=== PATIENT | male | born 1955 | race Caucasian/White ===

== ENCOUNTER 2023-03-16 07:53 | Outpatient (RCR) | payer MEDICARE, SELFPAY ==
--- NOTE | 2023-03-16 08:10 | OPREHPOC ---
Outpatient Therapy Plan of Care This is a Multidisciplinary Plan of Care that may contain components documented by all disciplines (PT, OT, and ST.) PT Problem 1 PT Problem #1 Knowledge Deficit PT Goal 1 Goal 1. independent and compliant with HEP Target Visit 4 PT Problem 2 PT Problem #2 Pain PT Goal 1 Goal 1. patient to report no more than 3/10 pain in the neck/upper traps 2. patient to report reduction of radicular symptoms in the bilateral hands to the elbows or higher. Target Visit 8 PT Problem 3 PT Problem #3 Impaired Range of Motion PT Goal 1 Goal 1. improve bilateral cervical rotation by 5 degrees or better 2. improve bilateral cervical sidebending t0 20 degrees or better 3. improve cervical flexion by 5 degrees or better 4. improve cervical extension by 5 degrees or better Target Visit 8 PT Problem 4 PT Problem #4 Impaired Strength PT Goal 1 Goal 1. improve bilateral shoulder strength to 4+/5 or better overall 2. improve bilateral elbow strength to 5/5 3. improve deep neck flexor strength to perform chin tuck and hold during cervical flexion from table in supine. 4. improve bilateral director plans strength to 65lbs or greater bilaterally Target Visit 8 PT Problem 5 PT Problem #5 Impaired Functional Mobil PT Goal 1 Goal 1. NDI to display less than 20% functionally declined 2. patient to carry 20lbs in each hand for 400ft without dropping weights or stopping to adjust director plans 3. patient to sleep through the night 4 nights a week or better 4. patient to lay on back and perform UE activities for 20 minutes at a time without rest 5. patient to
--- NOTE | 2023-03-16 08:10 | PTOPEVAL1 ---
Assessment and note entered by JT File, PT Evaluation Information Assessment Status Evaluation Diagnosis s/p cervical fusion Onset 01/26/23 Subjective Information patient reports he underwent cervical fusion on . he reports prior to the surgery, he was getting numbness and tingling in both hands. he reports he eventually had and MRI and CT of the cervical spine that found stenosis. he reports since surgery, both hands are still numb and tingling. he reports the L is worse than the R. he reports he is in remission from bladder cancer. he reports he his most recent scan found no new tumors. he reports he is unable to put socks on, tie shoes, walk with anything in his hands. he reports he frequently drops objects. he reports he also has difficulty buttoning his pants and sleeping. he believes he entier neck was fused from C1-C6 or C7. Reported Pain Level Pain Score 7: Self Report Assessment PT Clinical Summary mr. hernandez is a 67 yo man who presents to skilled PT services for evaluation and treatment of neck pain and functional limitations following a multi- level cervical fusion. he presents today with deficits in cervical rom, cervical strength, UE strength, and posture. he is also limited by pain in the neck and tenderness in the tissue surrounding the cervical spine. he would benefit from continued skilled PT to improve his objective /functional deficits, decrease pain, and return to prior level functional activities. Plan of Care Interventions Electrical Stimulation,Hot Pack/Cold Pack,Manual Therapy,Neuro Re-education,Patient/Caregiver Educati,Therapeutic Activities,Therapeutic Exercise PT Services Indicated Yes Treatment Frequency and 2x weekly for 8 visits Duration These treatments will address the objective and functional deficits as defined above. The patient will be advanced safely and appropriately in order for the patient to progress towards his/her prior level of function. Additional exercises will be introduced and as well as a comprehensive home exercise program upon discharge, if needed, ?to ensure carryover of functional gains achieved in the clinic. This treatment plan has been reviewed and agreement upon by the patient.
--- NOTE | 2023-03-19 07:56 | PCPTNOTE ---
pt cancelled no reason given
--- NOTE | 2023-04-15 08:00 | OPREHPOC ---
Outpatient Therapy Plan of Care This is a Multidisciplinary Plan of Care that may contain components documented by all disciplines (PT, OT, and ST.) PT Problem 1 PT Problem #1 Knowledge Deficit PT Goal 1 Goal 1. independent and compliant with HEP Target Visit 4 Progress Met PT Problem 2 PT Problem #2 Pain PT Goal 1 Goal 1. patient to report no more than 3/10 pain in the neck/upper traps 2. patient to report reduction of radicular symptoms in the bilateral hands to the elbows or higher. Target Visit 8 Progress Met PT Problem 3 PT Problem #3 Impaired Range of Motion PT Goal 1 Goal 1. improve bilateral cervical rotation by 5 degrees or better. met 2. improve bilateral cervical side bending to 20 degrees or better. not met 3. improve cervical flexion by 5 degrees or better . met 4. improve cervical extension by 5 degrees or better. met Target Visit 8 Progress Partially Met PT Problem 4 PT Problem #4 Impaired Strength PT Goal 1 Goal 1. improve bilateral shoulder strength to 4+/5 or better overall. not met 2. improve bilateral elbow strength to 5/5. not met 3. improve deep neck flexor strength to perform chin tuck and hold during cervical flexion from table in supine. met 4. improve bilateral [employer] strength to 65lbs or greater bilaterally. not met Target Visit 8 Progress Partially Met PT Problem 5 PT Problem #5 Impaired Functional Mobil PT Goal 1 Goal 1. NDI to display less than 20% functionally declined. met 2. patient to carry 20lbs in each hand for 400ft without dropping weights or stopping to adjust [employer]. met 3. patient to sleep through the night 4 nights a week or better. not met 4. patient to lay on
--- NOTE | 2023-04-15 08:02 | PTOPDC ---
Assessment and note entered by JT File, PT Evaluation Information Assessment Status Discharge Diagnosis s/p cervical fusion Onset 01/26/23 Subjective Information patient reports he has been back to work for the past week. he reports he has no pain today. he reports he is sore from working. he reports he gets a stinger every now and then in the shoulder blade that lasts only a second or 2. he reports he is ready to be done with therapy. Reported Pain Level Pain Score 0: Self Report Assessment PT Clinical Summary mr. hernandez presents to skilled PT today for his 7th skilled PT visit. he has no pain at rest. his rom , strength, and functional lifting/carrying are improved. he has met or partially met all goals for skilled PT. he will be DC'd from skilled PT services today and continue with HEP independent at home. he has returned to work and all prior level activities. Plan of Care PT Services Indicated Yes
== END 2023-04-15 09:52 | disposition home or self-care (01) ==
LOC: CHSPT 07:53
PROVIDERS: Visit Provider Neurological Surgery
DX: M47.812 Spondylosis without myelopathy or radiculopathy, cervical region (principal); Z98.1 Arthrodesis status
CPT/HCPCS: 97014; 97110; 97140; 97150; 97161; 97530; G0283